=== PATIENT | female | born 1955 | race Caucasian/White ===

== ENCOUNTER → 2017-05-16 | Outpatient (CLI) | payer OTHER ==
[~2017-05-16] MED LIST: AMLODIPINE BESY1 TAB PO; CATAPRES-T0.2 MG/24 TD; MOTRIN800 MG PO; Motrin,Rufen800 MG PO; NAPROSYN500 MG PO; SIMVASTATIN40 MG PO; TYLENOL W/CODEI1 TA2 PO; ZOLOFT50 MG PO
== END | disposition home or self-care (01) ==
LOC: MAMMO 05-10 11:30
DX: R92.8 Other abnormal and inconclusive findings on diagnostic imaging of breast (principal)

== ENCOUNTER 2017-06-26 15:34 | Emergency (ER) | payer OTHER ==
[~2017-06-26] VITALS: Wt 81.6 kg
[2017-06-26] MEDS ORDERED: CYCLOBENZAPRINE5 M3 PO (17:13)
== END 2017-06-26 17:20 | disposition home or self-care (01) ==
LOC: ED 15:34
DX: S60.212A Contusion of left wrist, initial encounter (principal); M62.830 Muscle spasm of back; F17.200 Nicotine dependence, unspecified, uncomplicated; V89.2XXA Person injured in unspecified motor-vehicle accident, traffic, initial encounter; Y93.89 Activity, other specified; Y92.413 State road as the place of occurrence of the external cause; Y99.8 Other external cause status

== ENCOUNTER 2017-06-28 12:55 | Emergency (ER) | payer OTHER ==
[~2017-06-28] VITALS: Ht 167.6 cm; Wt 81.6 kg
[~2017-06-28 12:55] MED LIST changes: +CYCLOBENZAPRINE5 M3 PO
[2017-06-28] MEDS ORDERED: MEDROL DOSEPAK4 MG PO (14:39)
== END 2017-06-28 19:14 | disposition home or self-care (01) ==
LOC: ED 12:55
DX: M54.12 Radiculopathy, cervical region (principal); F17.200 Nicotine dependence, unspecified, uncomplicated; Z98.890 Other specified postprocedural states; Z90.710 Acquired absence of both cervix and uterus

== ENCOUNTER 2017-07-01 12:54 | Emergency (ER) | payer OTHER ==
[~2017-07-01] VITALS: Ht 170.1 cm; Wt 81.6 kg
[~2017-07-01 12:54] MED LIST changes: +MEDROL DOSEPAK4 MG PO
[2017-07-01] MEDS ORDERED: CEPHALEXIN500 M1 PO (13:23)
== END 2017-07-01 13:32 | disposition home or self-care (01) ==
LOC: ED 12:54
DX: N61.1 Abscess of the breast and nipple (principal); F17.200 Nicotine dependence, unspecified, uncomplicated

== ENCOUNTER 2017-12-30 12:42 | Emergency (ER) | payer OTHER ==
[~2017-12-30] VITALS: Ht 167.6 cm; Wt 81.6 kg
--- NOTE | ~2017-12-30 | EKG ---
[place], [place] ELECTROCARDIOGRAM REPORT NAME: CHARO MANRIQUE UNIT #: [id number] ROOM: DOCTOR: DIANA UP,HOA BIRTHDATE: [birth year] DOS: 12/30/2017 TIME: 13:01. IMPRESSION: 1. Sinus rhythm. 2. Nonspecific ST-T changes. 3. Normal QT interval. HOA ORTIZ MD CM:EKGRPT:ELECTROCARDIOGRAM REPORT [id number] HOA ORTIZ MD
[~2017-12-30 12:42] MED LIST changes: +CEPHALEXIN500 M1 PO
[2017-12-30] MEDS ORDERED: AMLODIPINE BESY10 MG PO (13:08)
[2017-12-30] MEDS ORDERED: SIMVASTATIN40 MG PO (13:08)
[2017-12-30 13:22] LABS: BASO # 0.1 10*3/uL (0.0-0.1); BASO % 0.6 % (0.0-1.0); EOS % 0.5 % (1.0-4.0); HEMATOCRIT 42.4 % (37.0-47.0); HEMOGLOBIN 14.3 g/dl (12.0-16.0); LYMPH # 2.5 10*3/uL (1.3-4.4); LYMPH % 30.3 % (27.0-41.0); MEAN CELL VOLUME 91.8 fl (81.0-99.0); MEAN CORPUSCULAR HGB CONC 33.7 g/dl (33.0-37.0); MEAN PLATELET VOLUME 10.8 fl (9.6-12.3); MONO # 0.4 10*3/uL (0.1-1.0); NEUT # 5.2 10*3/uL (2.3-7.9); NEUT % 63.5 % (47.0-73.0); PLATELET COUNT AUTOMATED 236 10*3/uL (130-400); RED BLOOD COUNT 4.62 10*6/uL (4.10-5.10); WHITE BLOOD COUNT 8.2 10*3/uL (4.8-10.8)
[2017-12-30] MEDS ORDERED: CHLORZOXAZONE500 M2 PO (13:24)
[2017-12-30 13:30] LABS: ACT PARTIAL THROMBO TIME 24.3 SECONDS (20.8-31.5)
[2017-12-30 13:43] LABS: ALBUMIN 3.6 gm/dl (3.1-4.5); ALKALINE PHOSPHATASE 102 U/L (45-117); BUN 13 mg/dl (7-24); CHLORIDE 106 mmol/L (98-107); CREATININE 0.89 mg/dL (0.55-1.02); SGOT/AST 12 IU/L (3-35); SGPT/ALT 19 U/L (12-78); SODIUM 141 mmol/L (136-145); TOTAL PROTEIN 7.1 gm/dL (6.4-8.2)
[2017-12-30 13:46] LABS: TROPONIN I < 0.015 ng/ml (<0.045)
== END 2017-12-30 15:16 | disposition home or self-care (01) ==
LOC: ED 12:42
PROVIDERS: Student in an Organized Health Care Education/Training Program
DX: M54.10 Radiculopathy, site unspecified (principal); R03.0 Elevated blood-pressure reading, without diagnosis of hypertension; F17.200 Nicotine dependence, unspecified, uncomplicated; Z90.710 Acquired absence of both cervix and uterus; Z98.890 Other specified postprocedural states; Z79.899 Other long term (current) drug therapy